=== PATIENT | male | born 1985 | race Caucasian/White ===

== ENCOUNTER 2022-09-08 09:37 | Emergency (ER) | payer BC, SELFPAY ==
--- NOTE | ~2022-09-08 | XR_ITS ---
EXAMINATION: CR X-RAY FOOT AND ANKLE RIGHT CLINICAL INFORMATION: Swollen ankle status post snowboarding. COMPARISON: None TECHNIQUE: 3 views each of the right foot and ankle were obtained. An indicator arrow points to the fifth metatarsal. FINDINGS: There is an acute, minimally displacedspiral type fracture of the distal right fibular metadiaphysis. The distal tibia and medial malleolus appear intact. Mild degenerative spurring is seen along the inferior margins of the malleoli bilaterally. The tarsal bones are normally aligned. The metatarsals and phalanges are intact. There is mild soft tissue swelling. XR/XR ankle RT 2V IMPRESSION: 1. Acute distal right fibular fracture as detailed above. 2. No acute fracture of the right foot.
--- NOTE | ~2022-09-08 | XR_ITS ---
EXAMINATION: CR X-RAY FOOT AND ANKLE RIGHT CLINICAL INFORMATION: Swollen ankle status post snowboarding. COMPARISON: None TECHNIQUE: 3 views each of the right foot and ankle were obtained. An indicator arrow points to the fifth metatarsal. FINDINGS: There is an acute, minimally displacedspiral type fracture of the distal right fibular metadiaphysis. The distal tibia and medial malleolus appear intact. Mild degenerative spurring is seen along the inferior margins of the malleoli bilaterally. The tarsal bones are normally aligned. The metatarsals and phalanges are intact. There is mild soft tissue swelling. XR/XR foot RT 2V IMPRESSION: 1. Acute distal right fibular fracture as detailed above. 2. No acute fracture of the right foot.
--- NOTE | ~2022-09-08 | XR_ITS ---
EXAMINATION: XR CHEST CLINICAL INFORMATION: Rib pain status post no boarding fall. COMPARISON: None TECHNIQUE: 2 views of the chest were obtained. FINDINGS: The lungs are clear. There are no pleural effusions. The visualized ribs appear intact. Asymmetric widening of the right acromioclavicular joint is noted. XR/XR chest 2V IMPRESSION: 1. No acute cardiopulmonary process. 2. No overt acute rib fracture. If acute rib fracture is suspected, a dedicated rib series, site of concern is recommended. 3. Right acromioclavicular joint space widening does not appear acute and may be postsurgical. Correlate with patient history.
[2022-09-08 09:46] VITALS: BP 150/86; PULSE 67; RESP 18; TEMP 36.3; O2SAT 98; BMI 35.5
--- NOTE | 2022-09-08 10:13 | ED.GENADULT ---
HPI - General Adult General Chief complaint: Extremity Injury, Lower Stated complaint: r ankle inj Time Seen by Provider: 09/08/22 09:57 Source: patient Mode of arrival: ambulatory Limitations: no limitations History of Present Illness HPI narrative: 37-year-old healthy male presents to ED for right ankle/foot pain. Patient states he was snowboarding and wanted to avoid collision with his friend he swerved other way and fell in his right ankle/foot was an awkward position. He states he had helmet on and did not hit head or have any loss of consciousness. Patient states he has been walking on right ankle/foot for 2 days. Patient denies any abdominal pain, chest pain, nausea, vomiting, headache, dizziness, blood in stool, bloody urine, or any other concerning symptoms since incident. Related Data Previous Rx's Medication Instructions Recorded naproxen 500 mg tablet 500 mg PO BID PRN pain 7 days #14 09/08/22 tabs oxycodone 5 mg capsule 5 mg PO Q8H PRN pain 3 days #9 caps 09/08/22 Allergies Allergy/AdvReac Type Severity Reaction Status Date / Time No Known Allergies Allergy Unverified 04/26/20 16:49 [No Known Allergies*] Review of Systems Review of Systems: Right ankle pain. Yes all other systems are reviewed and are negative PMFSH Social History Social History Smoked in Last 30 Days: No Use of substances other than those prescribed or required for medical reasons: No Advance Directives: No Advance Directives Information Provided: No Physical Exam ED Vital Signs: Vital Signs - 24 hr 09/08/22 09:46 09/08/22 12:06 Temperature 97.4 F 97.8 F Pulse Rate 67 70 Respiratory Rate 18 17 Blood Pressure 150/86 H 143/87 H Pulse Oximetry 98 98 Oxygen Delivery Method Room Air Room Air BMI result Body Mass Index 35.5 Const General: cooperative, healthy appearing, comfortable, no acute distress, well developed, alert, awake and Physically active Orientation/consciousness: oriented to person, oriented to place, oriented to time and patient oriented x3 HENMT Head: Yes normal to inspection, Yes No palpable skull fracture present, Yes normocephalic, Yes atraumatic and No abrasion Ears: hearing grossly normal bilaterally, external ears normal, TM's normal bilaterally, EAC's normal, mastoids normal and no periauricular adenopathy Eyes General: appearance normal, both eyes and all related structures Neck Neck: Yes normal visual inspection, Yes full ROM, Yes no lymphadenopathy, Yes no meningeal signs, Yes trachea midline, Yes supple, No anterior neck swelling, No tender and No submandibular swelling Chest Chest palpation & inspection: normal inspection of the chest and normal palpation of entire chest wall Chest/axillae images: 1. Positive for ecchymosis. Negative for crepitus or tenderness on palpation. Resp Effort & Inspection: normal respiratory effort and able to speak in complete sentences Auscultation: clear to auscultation bilaterally Cardio Jugular venous distension: no JVD Heart sounds: S1 normal heart sound present and S2 normal heart sound present GI Other: Negative for any ecchymosis, or crepitus. Inspection: Yes normal to inspection and No abdominal wall ecchymosis Palpation (GI): Soft to palpation, not firm, nontender and no guarding General: No CVA tenderness and Yes no CVA tenderness Back/Spine/Pelvis Back: no CVA tenderness, No CVA tenderness and No back tenderness Skin General skin exam: no rashes or lesions noted and elasticity normal Neuro General: oriented to person, oriented to place, oriented to time, patient oriented x3, gait normal, tone normal, no meningeal signs, no focal motor deficits, CN's II-XI intact bilaterally and deep tendon reflexes 2+ bilaterally Cranial nerves: Yes CN's II-XII intact bilaterally Extrem General: Yes normal to inspection and Yes full ROM Ankle/foot/toe images: 1. Positive for tenderness and slight swelling. Small ecchymosis. Patient has complete range of motion of right lower extremity. Negative for crepitus. Motor/neuro/vascular exam intact Psych Appearance: grossly normal, well kempt and not disheveled Course Course Course Narrative: Patient will be sent for chest x-ray due to bruise on chest although no pain. Right/ankle/foot extremity x-rays ordered. Reevaluation(s) Reevaluation #1: Patient placed in posterior/stirrup splint. Given Motrin. Patient not in distress. Vascular neuromotor exam of toes intact after splint. Chest x-ray normal. No need for head CT, facial CT, cervical CT, abdominal CT scan. Patient did not have any pain in the areas and patient had helmet on his head. Time: 11:50 Medications Administered Discontinued Medications Generic Name Dose Route Start Last Admin Trade Name Geraldoq PRN Reason Stop Dose Admin Ibuprofen 800 mg 09/08/22 11:19 09/08/22 11:36 Ibuprofen 800 Mg Tablet PO 09/08/22 11:20 800 mg ONCE ONE Administration Medical Decision Making Medical Decision Making [facility] Narrative: Patient 37-year-old male presents to ED for right ankle pain after snowboarding fall. Patient well-appearing and not in distress. Patient has ankle fracture. Chest x-ray normal. Differential Diagnosis Differential Diagnoses: The differential diagnosis associated with the presentation includes (Ankle fracture, foot fracture, pneumothorax, hemothorax,) Admission/Observation No need for admission observation Radiology Impression Discussion of test interpretation with radiology: I have reviewed the radiologist's reading. Prescription Management I considered prescription management with: Pain Medication Discharge Plan Discharge Clinical Impression: Ankle fracture Patient Disposition: Home, Self-Care Instructions: Ankle Fracture (ED), Crutch Instructions (ED), Splint Care (ED) Additional Instructions: You need to follow-up with orthopedic surgeon for ankle fracture. He will be discharged with pain medication. You need to stay out of work until evaluated by orthopedic surgeon. Return to the ED immediately for any bluish black discoloration of toes, headache, dizziness, nausea, vomiting, chest pain, shortness of breath, abdominal pain, rectal bleeding, vomiting blood, blood in urine, or any other concerning symptoms. Prescriptions: New naproxen 500 mg tablet 500 mg PO BID PRN (Reason: pain) 7 Days Qty: 14 0RF oxycodone 5 mg capsule 5 mg PO Q8H PRN (Reason: pain) 3 Days Qty: 9 0RF Rx Instructions: Partial Fill upon patient request. Referrals: Abhi Burch MD [Physician] - (Right ankle fracture) Stand Alone Forms: Work/School Release Interventions: ED Discharge Assessment Last Done: 09/08/22 12:13 Discharge Date/Time: 09/08/22 12:14 Print Language: Upper Sorbian
[2022-09-08] MEDS: Ibuprofen 800 MG TABLET PO (11:36)
[2022-09-08 12:06] VITALS: BP 143/87; PULSE 70; RESP 17; TEMP 36.6; O2SAT 98
== END 2022-09-08 12:14 | disposition home or self-care (01) ==
PROVIDERS: Emergency Provider Student in an Organized Health Care Education/Training Program; PCP Internal Medicine
DX: S82.891A Other fracture of right lower leg, initial encounter for closed fracture (principal); M25.471 Effusion, right ankle; R07.81 Pleurodynia; X58.XXXA Exposure to other specified factors, initial encounter; Y93.23 Activity, snow (alpine) (downhill) skiing, snowboarding, sledding, tobogganing and snow tubing; Y92.9 Unspecified place or not applicable; Y99.9 Unspecified external cause status
CPT/HCPCS: 29515; 71046; 73600; 73620; 99284